=== PATIENT | male | born 1930 | race Hispanic/Latino ===

== ENCOUNTER 2017-10-22 17:46 | Inpatient (IN) | payer SELFPAY ==
[2017-10-22 18:08] LABS: #Eosinphils 0.2 thou/uL (0.0-0.7); #Lymphocytes 1.4 thou/uL (1.20-3.40); #Monocytes 1.5 thou/uL (0.11-0.59); #Neutrophils 9.6 thou/uL (1.40-6.50); %Eosinophils 1.2 % (0.0-10.0); %Monocytes 11.5 % (0.0-10.0); %Neutrophils 76.2 % (42.0-75.0); Hemoglobin 16.2 g/dL (14.0-18.0); Mean Corpuscular HGB CONC 33.1 g/dL (32.0-36.0); Mean Corpuscular Hemoglobin 33.5 pg (27.0-31.0); Mean Platelet Volume 7.5 fL (7.4-10.4); Platelet Count 193 thou/uL (130-400); RBC Distribution Width 11.6 % (11.5-14.5); Red Blood Cell (RBC) Count 4.83 mill/uL (4.70-6.10); White Blood Cell (WBC) Count 12.6 thou/uL (4.8-10.8)
[2017-10-22 18:29] LABS: ALT (SGPT) 7 U/L (8-55); AST (SGOT) 16 U/L (5-34); Alkaline Phosphatase 88 U/L (40-150); Anion Gap 15 mmol/L (10-20); BUN (Urea Nitrogen) 17 mg/dL (8.4-25.7); Bilirubin, Total 0.6 mg/dL (0.2-1.2); CK (CPK) 85 U/L (30-200); Calc. Creatinine Clearance 0 mL/min (70-130); Calcium 9.3 mg/dL (7.8-10.44); Carbon Dioxide 23 mmol/L (23-31); Chloride 103 mmol/L (98-107); Estimated GFR-MDRD 74; Globulin 3.9 g/dL (2.4-3.5); Glucose 90 mg/dL (83-110); Protein, Total 7.9 g/dL (5.8-8.1); Sodium 137 mmol/L (136-145)
[2017-10-22 18:33] LABS: CKMB 1.8 ng/mL (0-6.6); Troponin I 0.087 ng/mL (< 0.028)
[2017-10-22] MEDS ORDERED: Esmolol 100 MG/10 ML VIAL IVP SCH (19:00)
[2017-10-22] MEDS ORDERED: Esmolol 2,500 MG/NS 250 ML 250 ML IVPB SCH (19:00)
--- NOTE | 2017-10-22 19:08 | RAD ---
PORTABLE CHEST: 10/22/17 HISTORY: Cough. Lungs appear clear of confluent infiltrate. Heart is upper normal size. Mild aortic calcification not ed. No evidence of vascular congestion. There is interstitial prominence in the mid and lower lungs w hich may represent chronic change. Apical pleural thickening, more prominent on the left with some no dular pleural density in the left apex. I cannot exclude a left apical pulmonary nodule. This should be evaluated with elective followup CT. IMPRESSION: There are chronic parenchymal changes. Left apical pleural changes have a nodular appearance. Recomme nd followup elective chest CT. Code T Code LN POS: [facility]
[2017-10-22] MEDS ORDERED: Enoxaparin Sodium 80 MG/0.8 ML SYRINGE ONE (19:59)
[2017-10-22 22:04] LABS: Troponin I 0.089 ng/mL (< 0.028)
[2017-10-22 23:40] VITALS: BMI 20.5
[2017-10-23] MEDS ORDERED: Senokot 8.6 MG TAB PO PRN (04:39)
[2017-10-23] MEDS ORDERED: Acetaminophen 325 MG TAB PO PRN (04:39)
[2017-10-23] MEDS: Furosemide 40 MG/4 ML VIAL SLOW IVP SCH ×4 (05:28→23:17)
--- NOTE | 2017-10-23 05:42 | HP ---
REASON FOR ADMISSION: Paroxysmal atrial fibrillation, currently in sinus; acute CHF exacerbation, new onset; acute on chronic obstructive pulmonary disease exacerbation. HISTORY OF PRESENT ILLNESS: The patient gives history of having worsening of his cough and expectoration of greenish yellow phlegm. This has been getting worse from the last two days. He developed palpitations from yesterday night. On arrival, the patient had atrial fibrillation with RVR with rates going up to 140. He was placed on esmolol drip and is currently in sinus rhythm. He has no complaints of chest pain, but has severe orthopnea and is sitting up on the bed. No fever at home. PAST MEDICAL AND SURGICAL HISTORY: History of hypertension, COPD, GERD. No prior surgical history. CURRENT MEDICATIONS: Takes enalapril 10 mg daily. ALLERGIES: No known drug allergies. PERSONAL HISTORY: Smokes one pack a day and has been doing so for the last 30 years. Does not abuse alcohol or drugs. Walks by himself and does all his ADL. FAMILY HISTORY: Mother in her 80s. Father at the age of 68 years. He has had history of COPD. REVIEW OF SYSTEMS: The following complete review of systems was negative, unless otherwise mentioned in the HPI or below: Constitutional: Weight loss or gain, ability to conduct usual activities. Skin: Rash, itching. Eyes: Double vision, pain. ENT/Mouth: Nose bleeding, neck stiffness, pain, tenderness. Cardiovascular: Palpitations, dyspnea on exertion, orthopnea. Respiratory: Shortness of breath, wheezing, cough, hemoptysis, fever or night sweats. Gastrointestinal: Poor appetite, abdominal pain, heartburn, nausea, vomiting, constipation, or diarrhea. Genitourinary: Urgency, frequency, dysuria, nocturia. Musculoskeletal: Pain, swelling. Neurologic/Psychiatric: Anxiety, depression. Allergy/Immunologic: Skin rash, bleeding tendency. PHYSICAL EXAMINATION: GENERAL: The patient is an 87-year-old male who is currently in moderate respiratory distress with orthopnea. VITAL SIGNS: Blood pressure 150/96, pulse 110 per minute, respiratory rate 20 per minute, temperature 98 degrees Fahrenheit, saturating 100% on room air. NECK: Supple, no elevated JVD. HEENT: His extraocular muscles intact. Pupils reacting to light. Oral cavity : Mucous membranes are moist. No exudates or congestion. CARDIOVASCULAR SYSTEM: S1, S2 heard. Regular rhythm. RESPIRATORY SYSTEM: Air entry 1+ bilateral. There are rales plus in the intrascapular and infrascapular area. ABDOMEN: Soft, bowel sounds heard. No tenderness, rigidity or guarding. EXTREMITIES: No peripheral edema or calf tenderness. VASCULAR SYSTEM: Peripheral pulses 1+ bilateral. No ischemic ulcerations or gangrene. CENTRAL NERVOUS SYSTEM: No gross focal deficits seen. The patient is alert, awake, oriented well. PSYCHIATRIC SYSTEM: The patient's mood is euthymic. No hallucinations or delusions. LABORATORY DATA AND X-RAY FINDINGS: Troponin I 0.08. BNP is 1392, albumin is 4.0. Chest x-ray done shows scarring in left apical pleura, otherwise no acute infiltrate. BUN 10, creatinine 0.9. Electrolytes are stable. Liver enzymes are within normal limits. White count of 12, H and H 16 and 48, platelet count is 193, MCV is 101 with 76% neutrophils. EKG done showed atrial fibrillation with RVR at 140 beats per minute. There are signs of LVH. There are also ST-T wave changes seen, likely due to LVH strain pattern. CLINICAL IMPRESSION AND PLAN: The patient will be admitted to telemetry. The patient was in atrial fibrillation with rapid ventricular response, likely paroxysmal and is currently in sinus rhythm, after being placed on esmolol drip. He is currently in sinus and will switch him over to Cardizem-CD 120 mg twice daily. We will place him on Lasix 40 mg IV q.6 hourly for his severe orthopnea, total of 4 doses will be given and if needed, will be continued based on clinical response. He will be on DuoNebs, empiric Augmentin and steroids for chronic obstructive pulmonary disease exacerbation. The patient will be on aspirin for now. Echo with 2D Doppler to rule out thrombus. The patient is currently visiting family from [place]. He is 87 years old and unclear if he will be compliant with blood thinners if he is placed on. We will continue to closely monitor him on telemetry for now. SANDRA
[2017-10-23] MEDS ORDERED: hydrALAZINE 20 MG/ML VIAL SLOW IVP PRN (07:13)
[2017-10-23] MEDS ORDERED: cloNIDine 0.1 MG TAB PO PRN (07:13)
[2017-10-23] MEDS ORDERED: Milk Of Magnesia 30 ML UDCUP PO PRN (07:13)
[2017-10-23] MEDS ORDERED: Artificial Tears 18 DROP/0.9 ML EA EYE PRN (07:13)
[2017-10-23] MEDS ORDERED: Eucerin (Mineral Oil/Petrolatum,White) 30 gm Jar TOP PRN (07:13)
[2017-10-23] MEDS ORDERED: traMADol HCl 50 MG TAB PO PRN (07:13)
[2017-10-23] MEDS ORDERED: Loperamide HCl 2 MG CAP PO PRN (07:13)
[2017-10-23] MEDS ORDERED: Sodium Chloride 0.65% Nasal 44 ML BOT EA NARE PRN (07:13)
[2017-10-23] MEDS ORDERED: Diabetic Tussin 200 MG/10 ML UDCUP PO PRN (07:13)
[2017-10-23] MEDS ORDERED: Chloraseptic Spray 180 ml Bottle PO PRN (07:13)
[2017-10-23] MEDS ORDERED: Benzonatate 100 MG CAP PO PRN (07:13)
[2017-10-23] MEDS ORDERED: Ondansetron ODT 4 MG TAB PO PRN (07:13)
[2017-10-23] MEDS ORDERED: Ondansetron HCl/PF 4 MG/2 ML Vial IVP PRN (07:13)
[2017-10-23] MEDS ORDERED: Mag-Al 1200 mg/1200 mg/30 ML UDCUP PO PRN (07:13)
[2017-10-23] MEDS ORDERED: Temazepam 15 MG CAP PO PRN (07:13)
[2017-10-23] MEDS ORDERED: Loratadine 10 MG TAB PO PRN (07:13)
[2017-10-23] MEDS ORDERED: Lisinopril 2.5 MG TAB PO SCH (09:00)
[2017-10-23] MEDS ORDERED: Enoxaparin Sodium 40 MG/0.4 ML SYRINGE SC SCH (09:00)
[2017-10-23] MEDS ORDERED: Carvedilol 3.125 MG TAB PO SCH (09:00)
--- NOTE | 2017-10-23 09:17 | PDOC.PN ---
- Subjective Encounter Start Date: 10/23/17 Encounter Start Time: 08:00 -: old records requested/rev Patient seen and examined. No new complaints. No overnight events - Objective Resuscitation Status: Resuscitation Status FULL:Full Resuscitation MAR Reviewed: Yes Vital Signs & Weight: Vital Signs (12 hours) Temp Pulse Resp BP BP Pulse Ox 10/23/17 08:19 93 L 10/23/17 08:16 97 16 10/23/17 04:39 98.0 F 85 17 170/79 H 93 L 10/22/17 22:00 98.0 F 101 H 20 163/79 H 100 Weight Weight 123 lb 14.4 oz I&O: 10/22/17 10/23/17 10/24/17 06:59 06:59 06:59 Intake Total 0 Output Total 0 Balance 0 Result Diagrams: 10/22/17 17:58 10/22/17 17:58 EKG Reviewed by me: Yes (nsr) Phys Exam - Physical Examination Constitutional: NAD HEENT: PERRLA, moist MMs, sclera anicteric Neck: no JVD, supple Respiratory: no wheezing, no rhonchi few rales Cardiovascular: RRR, no significant murmur, no rub Gastrointestinal: soft, non-tender, no distention, positive bowel sounds Musculoskeletal: no edema, pulses present Neurological: non-focal, normal sensation Lymphatic: no nodes Psychiatric: normal affect, A&O x 3 Skin: no rash, normal turgor Dx/Plan (1) Atrial fibrillation with RVR Code(s): I48.91 - UNSPECIFIED ATRIAL FIBRILLATION Status: Acute (2) COPD exacerbation Code(s): J44.1 - CHRONIC OBSTRUCTIVE PULMONARY DISEASE W (ACUTE) EXACERBATION Status: Acute (3) Elevated brain natriuretic peptide (BNP) level Code(s): R79.89 - OTHER SPECIFIED ABNORMAL FINDINGS OF BLOOD CHEMISTRY Status : Acute (4) Elevated troponin Code(s): R74.8 - ABNORMAL LEVELS OF OTHER SERUM ENZYMES Status: Acute (5) Macrocytosis Code(s): D75.89 - OTHER SPECIFIED DISEASES OF BLOOD AND BLOOD-FORMING ORGANS Status: Acute (6) GERD (gastroesophageal reflux disease) Code(s): K21.9 - GASTRO-ESOPHAGEAL REFLUX DISEASE WITHOUT ESOPHAGITIS Status: Chronic (7) Hypertension Code(s): I10 - ESSENTIAL (PRIMARY) HYPERTENSION Status: Chronic - Plan cont current plan of care, plan discussed w/ family, continue antibiotics, respiratory therapy * afib converted to NSR * continue cardizem cd po * copd is getting better, continue solumedrol, add dulera, continue duoneb * control BP * continue lasix * echo pending * discussed with daughter * medication reviewed as below * symptomatic treatment. Review of Systems - Review of Systems Constitutional: negative: fever, chills, sweats, weakness, malaise, other ENT: negative: Ear Pain, Ear Discharge, Nose Pain, Nose Discharge, Nose Congestion, Mouth Pain, Mouth Swelling, Throat Pain, Throat Swelling, Other Respiratory: SOB with Excertion. negative: Cough, Dry, Shortness of Breath, Hemoptysis, Pleuritic Pain, Sputum, Wheezing Cardiovascular: orthopnea. negative: chest pain, palpitations, paroxysmal nocturnal dyspnea, edema, light headedness, other Gastrointestinal: negative: Nausea, Vomiting, Abdominal Pain, Diarrhea, Constipation, Melena, Hematochezia, Other Genitourinary: negative: Dysuria, Frequency, Incontinence, Hematuria, Retention , Other Musculoskeletal: negative: Neck Pain, Shoulder Pain, Arm Pain, Back Pain, Hand Pain, Leg Pain, Foot Pain, Other Skin: negative: Rash, Lesions, Joaquin, Bruising, Other - Medications/Allergies Allergies/Adverse Reactions: Allergies Allergy/AdvReac Type Severity Reaction Status Date / Time No Known Allergies Allergy Verified 10/22/17 23:27 Medications: Current Medications Acetaminophen (Tylenol) 650 mg PO Q4H PRN PRN Reason: Headache/Fever or Pain Al Hydroxide/Mg Hydroxide (Maalox) 15 ml PO Q4H PRN PRN Reason: Heartburn or Indigestion Albuterol/Ipratropium (Duoneb) 3 ml NEB [id number] Last Admin: 10/23/17 08:16 Dose: 3 ml Albuterol/Ipratropium (Duoneb) 3 ml NEB [id number] PRN PRN Reason: SOB &/or Wheezing Amoxicillin/Clavulanate Potassium (Augmentin) 875 mg PO BID [facility] Artificial Tears (Tears Naturale) 0 drop EA EYE PRN PRN PRN Reason: Dry Eyes Aspirin (Aspirin Chewable) 81 mg PO DAILY [facility] Benzonatate (Tessalon) 100 mg PO Q4H PRN PRN Reason: Cough Clonidine (Catapres) 0.1 mg PO Q4H PRN PRN Reason: Systolic BP > 180 Diltiazem HCl (Cardizem Cd) 120 mg PO BID [facility] Enoxaparin Sodium (Lovenox) 40 mg SC 0900 [facility] Famotidine (Pepcid) 20 mg PO DAILY [facility] Furosemide (Lasix) 40 mg SLOW IVP Q6HR [facility] Stop: 10/24/17 00:00 Last Admin: 10/23/17 05:28 Dose: 40 mg Guaifenesin (Robitussin Sf) 200 mg PO Q4H PRN PRN Reason: Cough Guaifenesin/Dextromethorphan (Robitussin Dm) 15 ml PO Q4H PRN PRN Reason: Cough Hydralazine HCl (Apresoline) 10 mg SLOW IVP Q4H PRN PRN Reason: Systolic BP > 180 Lisinopril (Zestril) 5 mg PO BID [facility] Loperamide HCl (Imodium) 2 mg PO PRN PRN PRN Reason: Diarrhea/Loose Stools Loratadine (Claritin) 10 mg PO DAILYPRN PRN PRN Reason: Sinus Symptoms Magnesium Hydroxide (Milk Of Magnesium) 30 ml PO DAILYPRN PRN PRN Reason: Constipation Methylprednisolone Sodium Succinate (Solu-Medrol) 40 mg IVP Q6HR [facility] Last Admin: 10/23/17 05:28 Dose: 40 mg Mineral Oil/White Petrolatum (Eucerin Cream) 0 gm TOP BIDPRN PRN PRN Reason: Dry Skin Mometasone Furoate/Formoterol Fumar (Dulera 200 Mcg/5 Mcg Inhaler) 1 puff INH BID-RT [facility] Ondansetron HCl (Zofran Odt) 4 mg PO Q6H PRN PRN Reason: Nausea/Vomiting Ondansetron HCl (Zofran) 4 mg IVP Q6H PRN PRN Reason: Nausea/Vomiting Phenol (Chloraseptic [place] 180 Ml Bot) 0 ml PO PRN PRN PRN Reason: Sore Throat Senna (Senokot) 2 tab PO HSPRN PRN PRN Reason: Constipation Sodium Chloride ([place] Nasal [place] 0.65%) 0 ml EA NARE QIDPRN PRN PRN Reason: Nasal Congestion Sodium Chloride (Flush - Normal Saline) 10 ml IVF Q12HR [facility] Sodium Chloride (Flush - Normal Saline) 10 ml IVF PRN PRN PRN Reason: Saline Flush Temazepam (Restoril) 15 mg PO HSPRN PRN PRN Reason: Insomnia Tramadol HCl (Ultram) 50 mg PO Q6H PRN PRN Reason: Moderate Pain (4-6)
[2017-10-23] MEDS: Famotidine 20 MG TAB PO SCH (09:43)
[2017-10-23] MEDS: Amoxicillin/Potassium Clav 875 MG TAB PO SCH ×2 (09:43→20:40)
[2017-10-23] MEDS: Lisinopril 5 MG TAB PO SCH ×2 (09:43→20:41)
[2017-10-23] MEDS: Guaifenesin DM 100-10/5 ML UDCUP PO PRN ×2 (09:44→17:46)
[2017-10-23] MEDS ORDERED: Esmolol 2,500 MG/NS 250 ML 250 ML IVPB SCH (12:00)
[2017-10-23] MEDS ORDERED: Flecainide 50 MG TAB PO SCH (12:15)
--- NOTE | 2017-10-23 13:41 | CON ---
DATE OF CONSULTATION: 10/23/2017 HISTORY OF PRESENT ILLNESS: The patient is an 87-year-old gentleman who presents with weakness and dyspnea. The patient has a previous history of atrial fibrillation. He states 3 years ago after being diagnosed with pneumonia he was found to be in atrial fibrillation. The patient lives primarily in [place]. He was visiting when he again for developed acute dyspnea. He denied having any fevers or chills. He denied having any chest discomfort. PAST MEDICAL HISTORY: 1. History of pneumonia. 2. Hypertension. 3. Prostate carcinoma. PAST SURGICAL HISTORY: Prostate surgery and lip surgery. SOCIAL HISTORY: He has a long history of tobacco abuse. ALLERGIES: None MEDICATIONS: Enalapril 10 daily, aspirin tablet daily. FAMILY HISTORY: Positive for history of cerebrovascular accident. No strong family history of coronary artery disease. PHYSICAL EXAMINATION: GENERAL: Elderly gentleman in no acute distress. VITAL SIGNS: Blood pressure 132/78. NECK: No jugular distention. LUNGS: Diminished breath sounds bilateral. HEART: Regular rate and rhythm, normal S1, S2. ABDOMEN: Nondistended. EXTREMITIES: Showed no edema. SKIN: Warm and dry. NEUROLOGIC: Nonfocal. LABORATORY RESULTS: Sodium 137, potassium 4.0, chloride 103, bicarb 23, BUN 17 , creatinine 0.97. BNP 1392, troponin 0.089. White blood cell count 12.6, hemoglobin 16.2, hematocrit 48.9 and platelets 193. EKG revealed atrial fibrillation with an ST-T wave abnormality suggestive of ischemia. IMPRESSION: 1. Rapid atrial fibrillation with a rapid ventricular response. 2. Hypertension. 3. Dyspnea. This gentleman presents with rapid atrial fibrillation. We will try to convert the patient with flecainide. We will check the patient's echocardiogram. We will follow this patient with you through his hospitalization. SANDRA
[2017-10-23] MEDS ORDERED: Amiodarone HCl 450 MG, Admixture Fee 1 EACH in Dextrose 5% in Water 250 ML IVPB SCH ×3 (16:15)
[2017-10-23] MEDS ORDERED: Amiodarone In Dextrose 200 ML IVPB SCH (16:15)
[2017-10-23] MEDS ORDERED: Amiodarone HCl 150 MG, Admixture Fee 1 EACH in Dextrose 5% in Water 100 ML IVPB SCH ×3 (16:15)
[2017-10-23 16:44] LABS: ALT (SGPT) 8 U/L (8-55); AST (SGOT) 15 U/L (5-34); Albumin 3.7 g/dL (3.4-4.8); Alkaline Phosphatase 80 U/L (40-150); Bilirubin, Direct 0.3 mg/dL (0.1-0.3); Bilirubin, Total 0.6 mg/dL (0.2-1.2); Magnesium 1.9 mg/dL (1.6-2.6); Potassium 3.7 mmol/L (3.5-5.1); Protein, Total 7.5 g/dL (5.8-8.1)
[2017-10-23] MEDS: Mometasone/Formoterol 120 PUFF INHALER INH SCH (19:20)
[2017-10-23] MEDS: Apixaban 5 MG TAB PO SCH (20:40)
[2017-10-23] MEDS ORDERED: Apixaban 2.5 MG TAB PO SCH (21:00)
[2017-10-23 21:58] LABS: Hemoglobin 15.3 g/dL (14.0-18.0); Platelet Count 209 thou/uL (130-400)
[2017-10-24 05:24] LABS: #Lymphocytes 0.7 thou/uL (1.20-3.40); #Monocytes 0.6 thou/uL (0.11-0.59); #Neutrophils 11.5 thou/uL (1.40-6.50); %Eosinophils 0.1 % (0.0-10.0); %Lymphocytes 5.3 % (21.0-51.0); %Monocytes 4.8 % (0.0-10.0); %Neutrophils 89.8 % (42.0-75.0); Hemoglobin 14.7 g/dL (14.0-18.0); Mean Corpuscular HGB CONC 33.1 g/dL (32.0-36.0); Mean Platelet Volume 8.3 fL (7.4-10.4); Platelet Count 202 thou/uL (130-400); RBC Distribution Width 11.6 % (11.5-14.5); Red Blood Cell (RBC) Count 4.33 mill/uL (4.70-6.10); White Blood Cell (WBC) Count 12.8 thou/uL (4.8-10.8)
[2017-10-24 05:45] LABS: Anion Gap 16 mmol/L (10-20); BUN (Urea Nitrogen) 44 mg/dL (8.4-25.7); Calc. Creatinine Clearance 21 mL/min (70-130); Calcium 9.5 mg/dL (7.8-10.44); Carbon Dioxide 23 mmol/L (23-31); Chloride 99 mmol/L (98-107); Estimated GFR-MDRD 30; Glucose 166 mg/dL (83-110); Potassium 3.5 mmol/L (3.5-5.1); Sodium 134 mmol/L (136-145)
[2017-10-24] MEDS: Mometasone/Formoterol 120 PUFF INHALER INH SCH ×2 (06:55→19:08)
[2017-10-24] MEDS ORDERED: Sodium Chloride 0.9% 1,000 ML IV SCH (07:45)
[2017-10-24] MEDS: Apixaban 5 MG TAB PO SCH ×2 (09:24→21:43)
[2017-10-24] MEDS: Cyanocobalamin (Vitamin B-12) 1,000 MCG TAB PO SCH (09:24)
[2017-10-24] MEDS: Famotidine 20 MG TAB PO SCH (09:24)
[2017-10-24] MEDS: Folic Acid 1 MG TAB PO SCH (09:24)
[2017-10-24] MEDS: Amiodarone 200 MG TAB PO SCH ×2 (09:24→21:44)
[2017-10-24 10:36] LABS: Bilirubin Negative (Negative); Blood, Urine Negative (Negative); Clarity CLEAR (Clear); Glucose, Urine (Dipstick) Negative (Negative); Leukocyte Negative (Negative); Nitrite Negative (Negative); Protein, Urine (Dipstick) Negative (Neg-Trace); Specific Gravity, Urine 1.021 (1.002-1.036)
[2017-10-24 10:37] LABS: Bacteria/HPF None Seen HPF (None Seen); Hyaline Casts/LPF 7-10 HYALINE CAST LPF (0-3 Hyaline); Pathc Cast-AUWi Flag 0.27 (0-2.49); RBC/HPF 0-3 HPF (0-3); Squamous Epithelial 0-3 HPF (0-3); WBC/HPF 0-3 HPF (0-3)
[2017-10-24 10:56] LABS: Creatinine, Urine 150.67 mg/dL (63-166); Protein, Urine Random Quant 14 mg/dL; Sodium, Urine Less than 20 mmol/L (Not Available)
--- NOTE | 2017-10-24 11:50 | PDOC.PN ---
- Subjective Encounter Start Date: 10/24/17 Encounter Start Time: 08:00 Patient seen and examined. No new complaints. No overnight events today pt has acute kidney failure - Objective Resuscitation Status: Resuscitation Status FULL:Full Resuscitation MAR Reviewed: Yes Vital Signs & Weight: Vital Signs (12 hours) Temp Pulse Pulse Pulse Resp BP BP 10/24/17 11:05 97.6 F 61 18 10/24/17 10:00 61 61 149/65 H 139/61 10/24/17 08:00 97.7 F 62 17 10/24/17 07:55 97.7 F 62 17 10/24/17 06:55 60 14 10/24/17 04:05 98.0 F 68 22 H 10/24/17 02:17 BP Pulse Ox Pulse Ox Pulse Ox 10/24/17 11:05 138/60 96 10/24/17 10:00 95 95 10/24/17 08:00 10/24/17 07:55 135/61 97 10/24/17 06:55 10/24/17 04:05 125/59 L 10/24/17 02:17 95 Weight Weight 129 lb 14.4 oz I&O: 10/23/17 10/24/17 10/25/17 06:59 06:59 06:59 Intake Total 0 1395 Output Total 0 3505 Balance 0 -2110 Result Diagrams: 10/24/17 04:50 10/24/17 04:50 Radiology Reviewed by me: Yes (echo report) EKG Reviewed by me: Yes (afib) Phys Exam - Physical Examination Constitutional: NAD HEENT: PERRLA, moist MMs, sclera anicteric Neck: no JVD, supple Respiratory: no wheezing, no rales, no rhonchi Cardiovascular: no significant murmur, irregular Gastrointestinal: soft, non-tender, no distention, positive bowel sounds Musculoskeletal: no edema, pulses present Neurological: non-focal, normal sensation, moves all 4 limbs Lymphatic: no nodes Psychiatric: normal affect, A&O x 3 Skin: no rash, normal turgor Dx/Plan (1) Acute kidney failure Status: Acute (2) Atrial fibrillation with RVR Code(s): I48.91 - UNSPECIFIED ATRIAL FIBRILLATION Status: Acute (3) COPD exacerbation Code(s): J44.1 - CHRONIC OBSTRUCTIVE PULMONARY DISEASE W (ACUTE) EXACERBATION Status: Acute (4) Elevated troponin Code(s): R74.8 - ABNORMAL LEVELS OF OTHER SERUM ENZYMES Status: Acute Comment: demand ischemia (5) Macrocytosis Code(s): D75.89 - OTHER SPECIFIED DISEASES OF BLOOD AND BLOOD-FORMING ORGANS Status: Acute (6) GERD (gastroesophageal reflux disease) Code(s): K21.9 - GASTRO-ESOPHAGEAL REFLUX DISEASE WITHOUT ESOPHAGITIS Status: Chronic (7) Hypertension Code(s): I10 - ESSENTIAL (PRIMARY) HYPERTENSION Status: Chronic (8) Acute on chronic systolic (congestive) heart failure Code(s): I50.23 - ACUTE ON CHRONIC SYSTOLIC (CONGESTIVE) HEART FAILURE Status : Resolved - Plan cont current plan of care, plan discussed w/ family * start IVF today * repeat labs tomorrow * reduce solumedrol * medication reviewed as below * symptomatic treatment * DC lisinopril * check UA, sodium, creatinine and protein in urine * discussed with daughter. Review of Systems - Review of Systems ENT: negative: Ear Pain, Ear Discharge, Nose Pain, Nose Discharge, Nose Congestion, Mouth Pain, Mouth Swelling, Throat Pain, Throat Swelling, Other Respiratory: negative: Cough, Dry, Shortness of Breath, Hemoptysis, SOB with Excertion, Pleuritic Pain, Sputum, Wheezing Cardiovascular: negative: chest pain, palpitations, orthopnea, paroxysmal nocturnal dyspnea, edema, light headedness, other Gastrointestinal: negative: Nausea, Vomiting, Abdominal Pain, Diarrhea, Constipation, Melena, Hematochezia, Other Genitourinary: negative: Dysuria, Frequency, Incontinence, Hematuria, Retention , Other Musculoskeletal: negative: Neck Pain, Shoulder Pain, Arm Pain, Back Pain, Hand Pain, Leg Pain, Foot Pain, Other Skin: negative: Rash, Lesions, Joaquin, Bruising, Other - Medications/Allergies Allergies/Adverse Reactions: Allergies Allergy/AdvReac Type Severity Reaction Status Date / Time No Known Allergies Allergy Verified 10/22/17 23:27 Medications: Current Medications Acetaminophen (Tylenol) 650 mg PO Q4H PRN PRN Reason: Headache/Fever or Pain Al Hydroxide/Mg Hydroxide (Maalox) 15 ml PO Q4H PRN PRN Reason: Heartburn or Indigestion Albuterol/Ipratropium (Duoneb) 3 ml NEB [id number] Last Admin: 10/24/17 06:55 Dose: 3 ml Albuterol/Ipratropium (Duoneb) 3 ml NEB [id number] PRN PRN Reason: SOB &/or Wheezing Amiodarone HCl (Cordarone) 200 mg PO BID [facility] Last Admin: 10/24/17 09:24 Dose: 200 mg Apixaban (Eliquis) 2.5 mg PO BID [facility] Last Admin: 10/24/17 09:24 Dose: 2.5 mg Artificial Tears (Tears Naturale) 0 drop EA EYE PRN PRN PRN Reason: Dry Eyes Aspirin (Aspirin Chewable) 81 mg PO DAILY [facility] Last Admin: 10/24/17 09:24 Dose: 81 mg Benzonatate (Tessalon) 100 mg PO Q4H PRN PRN Reason: Cough Clonidine (Catapres) 0.1 mg PO Q4H PRN PRN Reason: Systolic BP > 180 Cyanocobalamin (Vitamin B-12) 1,000 mcg PO DAILY [facility] Last Admin: 10/24/17 09:24 Dose: 1,000 mcg Famotidine (Pepcid) 20 mg PO DAILY [facility] Last Admin: 10/24/17 09:24 Dose: 20 mg Folic Acid (Folvite) 1 mg PO DAILY [facility] Last Admin: 10/24/17 09:24 Dose: 1 mg Guaifenesin (Robitussin Sf) 200 mg PO Q4H PRN PRN Reason: Cough Last Admin: 10/24/17 06:10 Dose: 200 mg Guaifenesin/Dextromethorphan (Robitussin Dm) 15 ml PO Q4H PRN PRN Reason: Cough Last Admin: 10/23/17 17:46 Dose: 15 ml Hydralazine HCl (Apresoline) 10 mg SLOW IVP Q4H PRN PRN Reason: Systolic BP > 180 Sodium Chloride (Normal Saline 0.9%) 1,000 mls @ 75 mls/hr IV .[id number] [facility] Stop: 10/24/17 21:04 Last Admin: 10/24/17 07:57 Dose: 1,000 mls Loperamide HCl (Imodium) 2 mg PO PRN PRN PRN Reason: Diarrhea/Loose Stools Loratadine (Claritin) 10 mg PO DAILYPRN PRN PRN Reason: Sinus Symptoms Magnesium Hydroxide (Milk Of Magnesium) 30 ml PO DAILYPRN PRN PRN Reason: Constipation Methylprednisolone Sodium Succinate (Solu-Medrol) 20 mg IVP Q8HR [facility] Mineral Oil/White Petrolatum (Eucerin Cream) 0 gm TOP BIDPRN PRN PRN Reason: Dry Skin Mometasone Furoate/Formoterol Fumar (Dulera 200 Mcg/5 Mcg Inhaler) 1 puff INH BID-RT [facility] Last Admin: 10/24/17 06:55 Dose: 1 puff Ondansetron HCl (Zofran Odt) 4 mg PO Q6H PRN PRN Reason: Nausea/Vomiting Ondansetron HCl (Zofran) 4 mg IVP Q6H PRN PRN Reason: Nausea/Vomiting Phenol (Chloraseptic [place] 180 Ml Bot) 0 ml PO PRN PRN PRN Reason: Sore Throat Senna (Senokot) 2 tab PO HSPRN PRN PRN Reason: Constipation Sodium Chloride ([place] Nasal [place] 0.65%) 0 ml EA NARE QIDPRN PRN PRN Reason: Nasal Congestion Sodium Chloride (Flush - Normal Saline) 10 ml IVF Q12HR [facility] Last Admin: 10/24/17 09:25 Dose: Not Given Sodium Chloride (Flush - Normal Saline) 10 ml IVF PRN PRN PRN Reason: Saline Flush Temazepam (Restoril) 15 mg PO HSPRN PRN PRN Reason: Insomnia Tramadol HCl (Ultram) 50 mg PO Q6H PRN PRN Reason: Moderate Pain (4-6)
[2017-10-24] MEDS ORDERED: Sterile Water 0 ML ONE (13:03)
[2017-10-24] MEDS ORDERED: Sterile Water 10 ML ONE (13:21)
[2017-10-24] MEDS: Guaifenesin DM 100-10/5 ML UDCUP PO PRN (13:29)
[2017-10-25 05:45] LABS: #Lymphocytes 1.1 thou/uL (1.20-3.40); #Monocytes 0.8 thou/uL (0.11-0.59); #Neutrophils 15.3 thou/uL (1.40-6.50); %Basophils 0.1 % (0.0-1.0); %Eosinophils 0.2 % (0.0-10.0); %Lymphocytes 6.3 % (21.0-51.0); %Monocytes 4.5 % (0.0-10.0); Hemoglobin 14.3 g/dL (14.0-18.0); Mean Corpuscular HGB CONC 32.2 g/dL (32.0-36.0); Mean Corpuscular Hemoglobin 32.4 pg (27.0-31.0); Mean Platelet Volume 7.7 fL (7.4-10.4); Platelet Count 227 thou/uL (130-400); RBC Distribution Width 11.7 % (11.5-14.5); White Blood Cell (WBC) Count 17.1 thou/uL (4.8-10.8)
[2017-10-25 05:55] LABS: Anion Gap 14 mmol/L (10-20); BUN (Urea Nitrogen) 43 mg/dL (8.4-25.7); Calc. Creatinine Clearance 30 mL/min (70-130); Calcium 9.2 mg/dL (7.8-10.44); Carbon Dioxide 26 mmol/L (23-31); Chloride 100 mmol/L (98-107); Estimated GFR-MDRD 43; Glucose 133 mg/dL (83-110); Potassium 3.7 mmol/L (3.5-5.1); Sodium 136 mmol/L (136-145)
[2017-10-25] MEDS: Mometasone/Formoterol 120 PUFF INHALER INH SCH ×2 (06:58→19:54)
[2017-10-25] MEDS: Amiodarone 200 MG TAB PO SCH ×2 (09:22→21:38)
[2017-10-25] MEDS: Apixaban 5 MG TAB PO SCH ×2 (09:23→21:37)
[2017-10-25] MEDS: Folic Acid 1 MG TAB PO SCH (09:23)
[2017-10-25] MEDS: Famotidine 20 MG TAB PO SCH (09:23)
[2017-10-25] MEDS: Cyanocobalamin (Vitamin B-12) 1,000 MCG TAB PO SCH (09:23)
[2017-10-25] MEDS: Guaifenesin DM 100-10/5 ML UDCUP PO PRN (09:31)
[2017-10-25] MEDS ORDERED: Sodium Chloride 0.9% 1,000 ML IV SCH (10:45)
--- NOTE | 2017-10-25 14:24 | EKG ---
Test Reason : Blood Pressure : / mmHG Vent. Rate : 140 BPM Atrial Rate : 150 BPM P-R Int : 000 ms QRS Dur : 094 ms QT Int : 324 ms P-R-T Axes : 000 053 141 degrees QTc Int : 494 ms Atrial fibrillation with rapid ventricular response Moderate voltage criteria for LVH, may be normal variant Marked ST abnormality, possible inferior subendocardial injury Abnormal ECG Confirmed by MINISTERIO Landaverde, BEHZAD ([id number]), online content editor DEBORAH ALSTON ([id number]) on 10/25/2017 2:23:16 PM Referred By: Confirmed By:BEHZAD MANDEL M.D.
--- NOTE | 2017-10-25 19:57 | PDOC.PN ---
- Subjective Encounter Start Date: 10/25/17 Encounter Start Time: 10:30 Patient seen and examined. No new complaints. No overnight events - Objective Resuscitation Status: Resuscitation Status FULL:Full Resuscitation MAR Reviewed: Yes Vital Signs & Weight: Vital Signs (12 hours) Temp Pulse Pulse Pulse Resp BP BP 10/25/17 19:54 10/25/17 19:53 10/25/17 15:32 97.7 F 75 18 10/25/17 13:22 80 24 H 10/25/17 11:03 97.7 F 66 17 10/25/17 10:02 70 66 177/76 H 157/67 H 10/25/17 08:00 97.4 F L 64 18 BP Pulse Ox Pulse Ox Pulse Ox 10/25/17 19:54 98 10/25/17 19:53 98 10/25/17 15:32 157/65 H 95 10/25/17 13:22 10/25/17 11:03 159/70 H 97 10/25/17 10:02 94 L 97 10/25/17 08:00 Weight Weight 131 lb 12.8 oz I&O: 10/24/17 10/25/17 10/26/17 06:59 06:59 06:59 Intake Total 1395 1740 1440 Output Total 3505 580 400 Balance -2110 1160 1040 Result Diagrams: 10/26/17 05:01 10/26/17 05:01 EKG Reviewed by me: Yes (Tele SR) Phys Exam - Physical Examination Constitutional: NAD Respiratory: no wheezing, no rhonchi Cardiovascular: RRR, no rub Gastrointestinal: soft, non-tender, positive bowel sounds Musculoskeletal: no edema Dx/Plan - Plan IMPRESSION: 1. Afib with RVR - in SR, on Amiodarone/Eliquis 2. BAO/CKD 2 - prob due to Cardiorenal syndrome 3. Acute on chronic systolic heart failure - not on ACEI/ARB/Aldactone due to BAO 4. COPD exacerbation - improving PLAN: * Gentle IV hydration for 500 ml * AM labs * Cardio following * Cont current meds as below * Change steroids to PO * Wean O2 Review of Systems - Review of Systems Respiratory: negative: Cough, Dry, Shortness of Breath, Hemoptysis, SOB with Excertion, Pleuritic Pain, Sputum, Wheezing Cardiovascular: negative: chest pain, palpitations, orthopnea, paroxysmal nocturnal dyspnea, edema, light headedness - Medications/Allergies Allergies/Adverse Reactions: Allergies Allergy/AdvReac Type Severity Reaction Status Date / Time No Known Allergies Allergy Verified 10/22/17 23:27 Medications: Current Medications Acetaminophen (Tylenol) 650 mg PO Q4H PRN PRN Reason: Headache/Fever or Pain Al Hydroxide/Mg Hydroxide (Maalox) 15 ml PO Q4H PRN PRN Reason: Heartburn or Indigestion Albuterol/Ipratropium (Duoneb) 3 ml NEB [id number] [facility] Last Admin: 10/25/17 19:53 Dose: 3 ml Albuterol/Ipratropium (Duoneb) 3 ml NEB [id number] PRN PRN Reason: SOB &/or Wheezing Amiodarone HCl (Cordarone) 200 mg PO BID [facility] Last Admin: 10/25/17 09:22 Dose: 200 mg Apixaban (Eliquis) 2.5 mg PO BID [facility] Last Admin: 10/25/17 09:23 Dose: 2.5 mg Artificial Tears (Tears Naturale) 0 drop EA EYE PRN PRN PRN Reason: Dry Eyes Aspirin (Aspirin Chewable) 81 mg PO DAILY [facility] Last Admin: 10/25/17 09:22 Dose: 81 mg Benzonatate (Tessalon) 100 mg PO Q4H PRN PRN Reason: Cough Clonidine (Catapres) 0.1 mg PO Q4H PRN PRN Reason: Systolic BP > 180 Cyanocobalamin (Vitamin B-12) 1,000 mcg PO DAILY [facility] Last Admin: 10/25/17 09:23 Dose: 1,000 mcg Famotidine (Pepcid) 20 mg PO DAILY [facility] Last Admin: 10/25/17 09:23 Dose: 20 mg Folic Acid (Folvite) 1 mg PO DAILY [facility] Last Admin: 10/25/17 09:23 Dose: 1 mg Guaifenesin (Robitussin Sf) 200 mg PO Q4H PRN PRN Reason: Cough Last Admin: 10/24/17 06:10 Dose: 200 mg Guaifenesin/Dextromethorphan (Robitussin Dm) 15 ml PO Q4H PRN PRN Reason: Cough Last Admin: 10/25/17 09:31 Dose: 15 ml Hydralazine HCl (Apresoline) 10 mg SLOW IVP Q4H PRN PRN Reason: Systolic BP > 180 Sodium Chloride (Normal Saline 0.9%) 1,000 mls @ 50 mls/hr IV .Q20H [facility] Stop: 10/25/17 20:46 Last Admin: 10/25/17 10:57 Dose: 1,000 mls Loperamide HCl (Imodium) 2 mg PO PRN PRN PRN Reason: Diarrhea/Loose Stools Loratadine (Claritin) 10 mg PO DAILYPRN PRN PRN Reason: Sinus Symptoms Magnesium Hydroxide (Milk Of Magnesium) 30 ml PO DAILYPRN PRN PRN Reason: Constipation Methylprednisolone Sodium Succinate (Solu-Medrol) 20 mg IVP Q8HR [facility] Last Admin: 10/25/17 14:41 Dose: 20 mg Mineral Oil/White Petrolatum (Eucerin Cream) 0 gm TOP BIDPRN PRN PRN Reason: Dry Skin Mometasone Furoate/Formoterol Fumar (Dulera 200 Mcg/5 Mcg Inhaler) 1 puff INH BID-RT [facility] Last Admin: 10/25/17 19:54 Dose: 1 puff Ondansetron HCl (Zofran Odt) 4 mg PO Q6H PRN PRN Reason: Nausea/Vomiting Ondansetron HCl (Zofran) 4 mg IVP Q6H PRN PRN Reason: Nausea/Vomiting Phenol (Chloraseptic Linwood 180 Ml Bot) 0 ml PO PRN PRN PRN Reason: Sore Throat Senna (Senokot) 2 tab PO HSPRN PRN PRN Reason: Constipation Sodium Chloride (Prentiss Nasal Linwood 0.65%) 0 ml EA NARE QIDPRN PRN PRN Reason: Nasal Congestion Sodium Chloride (Flush - Normal Saline) 10 ml IVF Q12HR [facility] Last Admin: 10/25/17 09:23 Dose: 10 ml Sodium Chloride (Flush - Normal Saline) 10 ml IVF PRN PRN PRN Reason: Saline Flush Temazepam (Restoril) 15 mg PO HSPRN PRN PRN Reason: Insomnia Tramadol HCl (Ultram) 50 mg PO Q6H PRN PRN Reason: Moderate Pain (4-6)
[2017-10-25 21:44] LABS: Hemoglobin 13.5 g/dL (14.0-18.0); Platelet Count 206 thou/uL (130-400)
[2017-10-26 05:16] LABS: #Monocytes 0.6 thou/uL (0.11-0.59); #Neutrophils 11.7 thou/uL (1.40-6.50); %Basophils 0.1 % (0.0-1.0); %Lymphocytes 7.4 % (21.0-51.0); %Monocytes 4.6 % (0.0-10.0); %Neutrophils 87.9 % (42.0-75.0); Hemoglobin 13.6 g/dL (14.0-18.0); Mean Corpuscular HGB CONC 33.1 g/dL (32.0-36.0); Mean Corpuscular Hemoglobin 33.4 pg (27.0-31.0); Mean Platelet Volume 7.4 fL (7.4-10.4); Platelet Count 213 thou/uL (130-400); RBC Distribution Width 11.5 % (11.5-14.5); Red Blood Cell (RBC) Count 4.06 mill/uL (4.70-6.10); White Blood Cell (WBC) Count 13.3 thou/uL (4.8-10.8)
[2017-10-26 05:42] LABS: ALT (SGPT) 16 U/L (8-55); AST (SGOT) 16 U/L (5-34); Albumin 3.3 g/dL (3.4-4.8); Alkaline Phosphatase 65 U/L (40-150); Anion Gap 11 mmol/L (10-20); BUN (Urea Nitrogen) 35 mg/dL (8.4-25.7); Bilirubin, Total 0.3 mg/dL (0.2-1.2); Calc. Creatinine Clearance 44 mL/min (70-130); Calcium 8.5 mg/dL (7.8-10.44); Carbon Dioxide 26 mmol/L (23-31); Chloride 103 mmol/L (98-107); Estimated GFR-MDRD 68; Globulin 2.8 g/dL (2.4-3.5); Glucose 118 mg/dL (83-110); Magnesium 2.3 mg/dL (1.6-2.6); Potassium 4.3 mmol/L (3.5-5.1); Protein, Total 6.1 g/dL (5.8-8.1); Sodium 136 mmol/L (136-145)
[2017-10-26] MEDS: Mometasone/Formoterol 120 PUFF INHALER INH SCH (06:35)
[2017-10-26] MEDS ORDERED: predniSONE 20 MG TAB PO SCH (08:00)
[2017-10-26] MEDS: Amiodarone 200 MG TAB PO SCH (08:50)
[2017-10-26] MEDS: Apixaban 5 MG TAB PO SCH (08:50)
[2017-10-26] MEDS: Cyanocobalamin (Vitamin B-12) 1,000 MCG TAB PO SCH (08:51)
[2017-10-26] MEDS: Famotidine 20 MG TAB PO SCH (08:51)
[2017-10-26] MEDS: Folic Acid 1 MG TAB PO SCH (08:51)
[2017-10-26] MEDS: Guaifenesin DM 100-10/5 ML UDCUP PO PRN ×2 (08:52→13:02)
[2017-10-26] MEDS ORDERED: Carvedilol 3.125 MG TAB PO SCH ×2 (10:45→17:00)
[2017-10-26 11:50] VITALS: TEMP 97.5
[2017-10-26 12:29] VITALS: BP 151/67
--- NOTE | 2017-10-27 09:36 | DIS ---
DATE OF DISCHARGE: 10/26/2017 DISCHARGE DISPOSITION: Home. FOLLOWUP: 1. Follow up with primary care physician at [facility] in 1 week. 2. Follow up with Cardiology, Dr. Zurdo Pruett, in 3-4 weeks. Outpatient cardiac rehab is recommended. The patient was extensively counseled to be compliant with fluid and salt restriction. ALLERGIES: No known drug allergies. The patient was seen and examined on the day of discharge, denies any new complaints, no chest pain, shortness of breath, or palpitations. DISCHARGE MEDICATIONS: 1. Aspirin 81 mg daily. 2. Eliquis 2.5 mg b.i.d. 3. Amiodarone 200 mg twice a day for 1 month and then daily. 4. Carvedilol 3.125 mg b.i.d. 5. Omnicef 300 mg b.i.d. for the next 5 days. 6. Enalapril 10 mg daily. 7. Mucinex twice a day for 1 week. 8. Prednisone taper. 9. Vitamin B12 daily. BRIEF HOSPITAL COURSE: Patient is an 87-year-old male, who was visiting from [place], presented to [facility] with shortness of breath. Please refer to the history and physical dated 10/22/2017 for mark shipley details. The patient was admitted to the hospital with a diagnosis of atrial fibrillation wit h rapid ventricular response as well as congestive heart failure exacerbation. Patient was seen by [facility]diology. He was started on amiodarone along with Eliquis. The patient is currently in sinus rhyth m. On admission, the patient was started on diuretics after which he developed acute kidney injury. Diu retics were discontinued. His creatinine is normalized at 1.04 on the day of discharge. His maximum creatinine was 2.14. SINDY inhibitor will be restarted tomorrow. A repeat basic metabolic panel next week is recommended. Primary care physician advised to follow. The patient has been cleared by [facility] diology for discharge. His echocardiogram showed left ventricular ejection fraction of 35%-40%. [facility] was recommended. However, due to financial reasons, the family declined. FINAL DIAGNOSES: 1. Atrial fibrillation with rapid ventricular response, currently in sinus rhythm. 2. Acute kidney injury on chronic kidney disease stage 2, probably secondary to cardiorenal syndrome versus diuretics, resolved. 3. Acute on chronic systolic heart failure, ejection fraction 35%-40%. 4. Chronic obstructive pulmonary disease exacerbation. 5. Hypertension. 6. Tobacco dependence. 7. Mild hyponatremia. 8. Mild protein-calorie malnutrition. 9. Elevated troponins, probably secondary to demand ischemia. 10. One of two blood culture positive for coagulase-negative staphylococcus, probably contamination. Plan of care was discussed with the patient and the family in detail. They stated understanding.
== END 2017-10-26 13:21 | disposition home or self-care (01) | DRG 291 ==
LOC: ERS 17:46 → 2NO 20:01 → ERS 21:53
PROVIDERS: ADMIT Emergency Medicine; ATTEND Emergency Medicine
DX: I13.0 Hypertensive heart and chronic kidney disease with heart failure and stage 1 through stage 4 chronic kidney disease, or unspecified chronic kidney disease (principal); I50.23 Acute on chronic systolic (congestive) heart failure; N17.9 Acute kidney failure, unspecified; I48.0 Paroxysmal atrial fibrillation; E87.1 Hypo-osmolality and hyponatremia; E44.1 Mild protein-calorie malnutrition; I24.8 Other forms of acute ischemic heart disease; J44.1 Chronic obstructive pulmonary disease with (acute) exacerbation; Z79.01 Long term (current) use of anticoagulants; N18.2 Chronic kidney disease, stage 2 (mild); K21.9 Gastro-esophageal reflux disease without esophagitis; F17.210 Nicotine dependence, cigarettes, uncomplicated; Z68.21 Body mass index [BMI] 21.0-21.9, adult; Z85.46 Personal history of malignant neoplasm of prostate
CPT/HCPCS: 36415; 71045; 80048; 80053; 80076; 81001; 82550; 82553; 82565; 82570; 83735; 83880; 84132; 84156; 84300; 84443; 84484; 84550; 85014; 85018; 85025; 85049; 87040; 87070; 87149; 87205; 93005; 93306; 93798; 94640; 94760; 96365; 96366; 96368; 96372; 96376; 99406; A4216; J0282; J1650; J1940; J1956; J2920; J7070; J7506; J7620

== ENCOUNTER 2017-11-03 15:19 | Inpatient (IN) | payer MEDICAID, SELFPAY ==
--- NOTE | 2017-11-03 16:48 | RAD ---
CHEST 1 VIEW: Date: 11/03/17 HISTORY: Chest pain. COMPARISON: Chest 1 view dated 10/22/17. FINDINGS: Lungs are mildly hyperinflated. Nodular densities project over the left lung apex, similar. No new focal air space consolidation, pneumothorax, or effusion. No acute osseous abnormality. IMPRESSION: No significant interval change. In a previous examination, CT of the chest was recommended. This john mmendation still stands. POS: ARTEM
[2017-11-03 17:14] LABS: #Basophils 0.1 thou/uL (0.0-0.2); #Eosinphils 0.2 thou/uL (0.0-0.7); #Lymphocytes 2.4 thou/uL (1.20-3.40); #Monocytes 1.6 thou/uL (0.11-0.59); #Neutrophils 8.5 thou/uL (1.40-6.50); %Basophils 0.5 % (0.0-1.0); %Eosinophils 1.6 % (0.0-10.0); %Monocytes 12.3 % (0.0-10.0); %Neutrophils 66.7 % (42.0-75.0); Hemoglobin 14.5 g/dL (14.0-18.0); Mean Corpuscular HGB CONC 33.7 g/dL (32.0-36.0); Mean Corpuscular Hemoglobin 34.1 pg (27.0-31.0); Mean Platelet Volume 7.3 fL (7.4-10.4); Platelet Count 276 thou/uL (130-400); RBC Distribution Width 11.7 % (11.5-14.5); Red Blood Cell (RBC) Count 4.25 mill/uL (4.70-6.10); White Blood Cell (WBC) Count 12.8 thou/uL (4.8-10.8)
[2017-11-03 17:20] LABS: ALT (SGPT) 18 U/L (8-55); AST (SGOT) 16 U/L (5-34); Albumin 3.3 g/dL (3.4-4.8); Alkaline Phosphatase 65 U/L (40-150); Anion Gap 8 mmol/L (10-20); BUN (Urea Nitrogen) 24 mg/dL (8.4-25.7); Bilirubin, Total 0.3 mg/dL (0.2-1.2); Calc. Creatinine Clearance 0 mL/min (70-130); Calcium 8.5 mg/dL (7.8-10.44); Carbon Dioxide 31 mmol/L (23-31); Chloride 99 mmol/L (98-107); Estimated GFR-MDRD 52; Globulin 2.7 g/dL (2.4-3.5); Glucose 94 mg/dL (83-110); Potassium 4.5 mmol/L (3.5-5.1); Sodium 133 mmol/L (136-145)
[2017-11-03 17:33] LABS: CKMB 1.6 ng/mL (0-6.6); Troponin I 0.048 ng/mL (< 0.028)
[2017-11-03 19:51] LABS: Troponin I 0.054 ng/mL (< 0.028)
[2017-11-03 22:23] LABS: Troponin I 0.043 ng/mL (< 0.028)
[2017-11-03 23:21] VITALS: BMI 20.9
[2017-11-04] MEDS ORDERED: HYDROcodone/Acetaminophen 5/325 mg Tablet PO PRN (00:13)
[2017-11-04] MEDS ORDERED: Acetaminophen 325 MG TAB PO PRN (00:13)
[2017-11-04] MEDS ORDERED: Ondansetron HCl/PF 4 MG/2 ML Vial IVP PRN (00:13)
[2017-11-04 01:01] LABS: Troponin I 0.051 ng/mL (< 0.028)
--- NOTE | 2017-11-04 01:24 | HP ---
DATE OF ADMISSION: 11/03/2017 CHIEF COMPLAINT: Chest pain. HISTORY OF PRESENT ILLNESS: This is an 87-year-old male with a known history of recurrent c hest pains was recently admitted to the hospital a week ago and was discharged a week ago. Patient h as a known history of COPD and history of GERD, which according to him is well controlled. Patient h as history of congestive heart failure, which he was admitted last time. He was discharged home on E liquis, as he was diagnosed with atrial fibrillation with rapid ventricular rate. Patient also had a n echo, which did not show any evidence of clot at that time. Patient was discharged and was suppose d to be followed up with medical billing supervisor for further ischemic workup as outpatient, but patient serjio almendarez a sudden onset of chest pain this afternoon 2 times at home and also symptoms of orthopnea, so pamela cuevas was immediately brought to the ER for further evaluation. When patient presented to the ER, he h ad a normal EKG, but had elevated troponin of 0.48, which progressively got increased to 0.054. Pamela ent had elevated BNP of 590, but this was much less than the previous BNP a week ago. Patient most genny ivey has NSTEMI and was admitted for further evaluation. Patient has poor communication and the windy ter, who does speak some Turkish and was able to give most of the history. Patient otherwise is st able, but is acutely orthopneic and is able to only sit up in the bed and unable to lie down on his b ack. PAST MEDICAL HISTORY: 1. Hypertension. 2. Chronic obstructive pulmonary disease. 3. Atrial fibrillation on anticoagulation. 4. Gastroesophageal reflux disease. 5. Congestive heart failure, systolic dysfunction. PAST SURGICAL HISTORY: None. SOCIAL HISTORY: Patient smokes 1 pack a day and has been doing it for the last 30 years. No history of alcohol, no history of illicit drug use. FAMILY HISTORY: Mother at the age of 80. Father at age of 68. No other premature deaths in e family. REVIEW OF SYSTEMS: Unable to obtain review of systems, but most from the patient directly, but I was able to talk to daughter and review of systems have been reviewed thoroughly. All 12 systems are re viewed. The following complete review of systems was negative, unless otherwise mentioned in the HPI or below: Constitutional: Weight loss or gain, sense of well-being, ability to conduct usual activ ities, exercise tolerance. Skin/Breast: Rash, itching, changes in hair growth or loss, nail changes , breast lumps, tenderness, swelling, nipple discharge. Eyes: Vision, double vision, tearing, blind spots, pain. ENT/Mouth: Headaches (location, time of onset, duration, precipitating factors), vert igo, lightheadedness, injury. Vision, double vision, tearing, blind spots, pain, nose bleeding, colds , obstruction, discharge, dental difficulties, gingival bleeding, dentures, neck stiffness, pain, ten derness, masses in thyroid or other areas. Cardiovascular: Precordial pain, substernal distress, pa lpitations, syncope, dyspnea on exertion, orthopnea, nocturnal paroxysmal dyspnea, edema, cyanosis, h ypertension, heart murmurs, varicosities, phlebitis, claudication. Respiratory: Pain, shortness of breath, wheezing, stridor, cough, hemoptysis, fever or night sweats. Gastrointestinal: Poor appetit e, dysphagia, indigestion, abdominal pain, heartburn, eructation, nausea, vomiting, hematemesis, jim dice, constipation, or diarrhea, abnormal stools (jonnathan-colored, tarry, bloody, greasy, foul smelling) , flatulence, hemorrhoids, recent changes in bowel habits. Genitourinary: Urgency, frequency, dysur ia, nocturia, hematuria, polyuria, oliguria, unusual (or change in) color of urine, stones, hesitancy , change in size of stream, dribbling, acute retention or incontinence, libido, potency. Musculoskel etal: Pain, swelling, redness or heat of muscles or joints, limitation, of motion, muscular weakness , atrophy, cramps. Neurologic/Psychiatric: Convulsions, paralysis, tremor, incoordination, paresthe ally, difficulties with memory of speech, sensory or motor disturbances, or muscular coordination (at axia, tremor), emotional problems, anxiety, depression, previous psychiatric care, unusual perception s, hallucinations. Allergy/Immunologic: Skin rash, anemia, bleeding tendency, polydipsia, polyuria, intolerance to heat or cold. ALLERGIES: No known drug allergies. HOME MEDICATIONS: 1. Guaifenesin 600 mg p.o. b.i.d. 2. Amiodarone 200 mg p.o. b.i.d. 3. Coreg 3.125 mg p.o. b.i.d. 4. Eliquis 2.5 mg p.o. b.i.d. 5. Aspirin 81 mg p.o. daily. 6. Enalapril 10 mg p.o. daily. PHYSICAL EXAMINATION: VITAL SIGNS: Blood pressures are 175/77, heart rate is 47, respirations 20, saturation is 98% to 99% . GENERAL: The patient is moderately built and moderately nourished, does not appear to be in any acut e distress at this time. He is alert and oriented x3. HEENT: Atraumatic, normocephalic. PERRLA. Extraocular movements were intact. CARDIOVASCULAR: S1, S2 normal, bradycardia. No murmurs, rubs, or gallops. LUNGS: Bilateral air entry was equal. Mild crackles were noted in the lower bases. ABDOMEN: Soft, nontender. No guarding, no rebound tenderness. Bowel sounds normal. MUSCULOSKELETAL: No calf tenderness. No pedal edema. No joint tenderness, no joint swelling. SKIN: No cyanosis, no erythema, no rash, no pallor. NEUROLOGIC: Cranial nerve examination II-XII intact. No focal deficits were noted. PSYCHIATRIC: No signs of suicidal ideation. No signs of ashish. NECK: No thyromegaly, no JVD. LABORATORY DATA: Sodium is 133, potassium 4.5, chloride is 99, BUN is 24, creatinine 1.3, troponin 0 .048, next troponin 0.054. BNP is 590. WBC 12.8, hemoglobin is 14.5, hematocrit 43.0, platelets are 276. ASSESSMENT: 1. Non-ST segment elevation myocardial infarction. 2. Acute bradycardia. 3. Right lung apex nodules. 4. Acute orthopnea. 5. Congestive heart failure. 6. Atrial fibrillation on anticoagulation. 7. Acute hyponatremia. 8. Acute kidney injury. PLAN: 1. Plan is to closely monitor this patient. We will do serial troponins and we will continue the pa tient on Eliquis at this time and the statin. 2. Patient has bradycardia with lowest being 47. At this time, we will hold off on the beta bailey s. We will continue on amiodarone at this time, which was started by the Cardiology. We will plan t o consult Cardiology in the morning. Patient had recent 2D echo a week ago with a low EF of 35%-40%. 3. Patient has orthopnea, most likely it could be from the left heart failure or the patient had chelsea dence of left apex lung nodules, which need further evaluation with CT of the chest. We will do a CT chest with contrast to look for any evidence of malignancies, as patient has been a chronic smoker. 4. Patient has history of COPD. No evidence of an exacerbation was noted. 5. Patient has elevated troponins. Plan per above. We will continue with Eliquis and we will hold the beta blockers, because of the bradycardia. 6. DVT prophylaxis, patient is on Eliquis. I spent 70 minutes with this patient.
[2017-11-04 04:57] LABS: #Basophils 0.1 thou/uL (0.0-0.2); #Eosinphils 0.2 thou/uL (0.0-0.7); #Lymphocytes 2.8 thou/uL (1.20-3.40); #Monocytes 1.6 thou/uL (0.11-0.59); %Basophils 0.4 % (0.0-1.0); %Eosinophils 1.8 % (0.0-10.0); %Monocytes 12.8 % (0.0-10.0); %Neutrophils 63.1 % (42.0-75.0); Hemoglobin 14.6 g/dL (14.0-18.0); Mean Corpuscular HGB CONC 33.5 g/dL (32.0-36.0); Mean Corpuscular Hemoglobin 34.2 pg (27.0-31.0); Mean Platelet Volume 7.5 fL (7.4-10.4); Platelet Count 284 thou/uL (130-400); RBC Distribution Width 11.8 % (11.5-14.5); Red Blood Cell (RBC) Count 4.26 mill/uL (4.70-6.10); White Blood Cell (WBC) Count 12.6 thou/uL (4.8-10.8)
[2017-11-04 05:14] LABS: Anion Gap 12 mmol/L (10-20); BUN (Urea Nitrogen) 22 mg/dL (8.4-25.7); Calc. Creatinine Clearance 38 mL/min (70-130); Calcium 8.6 mg/dL (7.8-10.44); Carbon Dioxide 29 mmol/L (23-31); Cardiac Risk 3.6 (Less than 4.5); Chloride 100 mmol/L (98-107); Cholesterol 154 mg/dl (< 200 Desired); Estimated GFR-MDRD 61; Glucose 78 mg/dL (83-110); HDL Cholesterol 43 mg/dL (>60 Neg Risk); LDL Cholesterol, Calculated 95 mg/dL; Potassium 4.5 mmol/L (3.5-5.1); Sodium 136 mmol/L (136-145); Triglycerides 81 mg/dL (Less than 150)
[2017-11-04] MEDS ORDERED: Amiodarone 200 MG TAB PO SCH (09:00)
[2017-11-04] MEDS ORDERED: Apixaban 2.5 MG TAB PO SCH (09:00)
[2017-11-04] MEDS ORDERED: FLU VACC TS2017-18 (>65YR) 0.5 ML SYRINGE IM ONE (09:00)
[2017-11-04] MEDS: Docusate 100 MG CAP PO SCH ×2 (09:34→20:34)
[2017-11-04] MEDS: Famotidine/PF 20 mg/2ml Vial SLOW IVP SCH (09:34)
--- NOTE | 2017-11-04 11:06 | PDOC.PN ---
- Subjective Encounter Start Date: 11/04/17 Encounter Start Time: 10:00 Subjective: sob is getting better -: cough+, no chest pain or palp now - Objective MAR Reviewed: Yes Vital Signs & Weight: Vital Signs (12 hours) Temp Pulse Pulse Pulse Resp BP BP 11/04/17 08:02 49 L 53 L 174/74 H 180/78 H 11/04/17 08:00 97.6 F 49 L 18 11/04/17 07:51 97.6 F 49 L 18 11/04/17 06:39 97.7 F 48 L 20 11/04/17 04:25 98.5 F 57 L 20 BP BP Pulse Ox Pulse Ox Pulse Ox 11/04/17 08:02 98 96 11/04/17 08:00 11/04/17 07:51 160/73 H 93 L 11/04/17 06:39 168/72 H 94 L 11/04/17 04:25 181/76 H 92 L Result Diagrams: 11/04/17 00:26 11/04/17 00:28 Phys Exam - Physical Examination HEENT: PERRLA, moist MMs Neck: no JVD, supple Respiratory: no wheezing rales+ Cardiovascular: RRR, no significant murmur Gastrointestinal: soft, no distention, positive bowel sounds Musculoskeletal: no edema, pulses present Neurological: non-focal, moves all 4 limbs Psychiatric: normal affect, A&O x 3 Dx/Plan (1) Acute on chronic systolic (congestive) heart failure Code(s): I50.23 - ACUTE ON CHRONIC SYSTOLIC (CONGESTIVE) HEART FAILURE Status : Acute Comment: ef of 35% (2) COPD (chronic obstructive pulmonary disease) Status: Chronic Qualifiers: COPD type: chronic bronchitis Chronic bronchitis type: unspecified Qualified Code(s): J42 - Unspecified chronic bronchitis (3) Afib Code(s): I48.91 - UNSPECIFIED ATRIAL FIBRILLATION Status: Chronic Qualifiers: Atrial fibrillation type: paroxysmal Qualified Code(s): I48.0 - Paroxysmal atrial fibrillation (4) Demand ischemia of myocardium Code(s): I24.8 - OTHER FORMS OF ACUTE ISCHEMIC HEART DISEASE Status: Acute (5) GERD (gastroesophageal reflux disease) Code(s): K21.9 - GASTRO-ESOPHAGEAL REFLUX DISEASE WITHOUT ESOPHAGITIS Status: Chronic Qualifiers: Esophagitis presence: esophagitis presence not specified Qualified Code(s) : K21.9 - Gastro-esophageal reflux disease without esophagitis (6) Hypertension Code(s): I10 - ESSENTIAL (PRIMARY) HYPERTENSION Status: Chronic Qualifiers: Hypertension type: essential hypertension Qualified Code(s): I10 - Essential (primary) hypertension - Plan gentle diuresis, has orthopnea -: ekg shows lvh strain with ST-T changes -: ?stress test in am/cath due to low ef, needs diuresis so he can lay flat -: duonebs, reduce amiodarone to once daily (HR down to 40's) -: on eliquis, asp and enalapril. Cardio consult * . Review of Systems - Medications/Allergies Allergies/Adverse Reactions: Allergies Allergy/AdvReac Type Severity Reaction Status Date / Time No Known Allergies Allergy Verified 11/03/17 20:49 Medications: Current Medications Acetaminophen (Tylenol) 650 mg PO Q4H PRN PRN Reason: Headache/Fever or Pain Hydrocodone Bitart/Acetaminophen (Ceiba 5/325) 1 tab PO Q4H PRN PRN Reason: Moderate Pain (4-6) Albuterol/Ipratropium (Duoneb) 3 ml NEB [id number] [facility] Amiodarone HCl (Cordarone) 200 mg PO DAILY [facility] Apixaban (Eliquis) 2.5 mg PO BID [facility] Last Admin: 11/04/17 10:36 Dose: 2.5 mg Aspirin (Aspirin Chewable) 81 mg PO DAILY [facility] Last Admin: 11/04/17 09:34 Dose: 81 mg Docusate Sodium (Colace) 100 mg PO BID [facility] Last Admin: 11/04/17 09:34 Dose: 100 mg Enalapril Maleate (Vasotec) 10 mg PO DAILY [facility] Last Admin: 11/04/17 09:34 Dose: 10 mg Famotidine (Pepcid) 20 mg SLOW IVP DAILY [facility] Last Admin: 11/04/17 09:34 Dose: 20 mg Furosemide (Lasix) 20 mg SLOW IVP 0600,1400 [facility] Furosemide (Lasix) 40 mg SLOW IVP ONE [facility] Guaifenesin (Mucinex) 600 mg PO Q12HR [facility] Ondansetron HCl (Zofran) 4 mg IVP Q6H PRN PRN Reason: Nausea/Vomiting
[2017-11-04] MEDS ORDERED: Furosemide 40 MG/4 ML VIAL SLOW IVP SCH (11:15)
--- NOTE | 2017-11-04 12:40 | CT ---
CT CHEST WITH IV CONTRAST: HISTORY: Abnormal x-ray from previous day, left apex nodular densities. FINDINGS: No evidence of mediastinal, hilar, or axillary mass or lymphadenopathy is seen. There are vascular c alcifications without evidence of aneurysm or dissection of the thoracic aorta. The pulmonary arteri es are well opacified without filling defects to suggest pulmonary embolism. No pleural or pericardi al effusions are seen. Emphysematous changes are seen with upper lobe dominance. There is scarring in the lung apices. No focal areas of consolidation or pneumothoraces or lung masses/nodules are oth erwise seen. There are degenerative changes in the spine. Upper abdominal tomograms demonstrate cys ts in the liver and kidneys. IMPRESSION: Emphysematous changes in the lungs. POS: C
[2017-11-04] MEDS: Furosemide 20 MG/2 ML VIAL SLOW IVP SCH (14:26)
[2017-11-04] MEDS ORDERED: Iopamidol 370 76% 100 ML VIAL ONE (15:00)
--- NOTE | 2017-11-04 16:59 | CON ---
DATE OF CONSULTATION: 11/04/2017 HISTORY OF PRESENT ILLNESS: Mr. Marcio Mcintyre is an 87-year-old [place] gentleman from [place], who was here visiting 2 weeks ago. He presented to the emergency room on 10/22/2017 with wea kness and dyspnea. He was found to be in atrial fibrillation with fast ventricular response. He als o apparently had a history of atrial fibrillation 3 years prior to that when he had pneumonia. Echoc ardiogram revealed an ejection fraction of 35% to 40% with mild left ventricular enlargement, mild mi tral regurgitation, mild aortic regurgitation and mild tricuspid regurgitation. He was placed on ami odarone apparently, chemically converted to sinus rhythm. He was diuresed and his creatinine increas ed to 2.14 and diuretics were then held as well as SINDY inhibitor, which was later restarted. Ultimat chucho, he was discharged on . He now presents with an episode of chest discomfort yesterday. Discussion was held with the help of one of the nurses who was providing translation. He apparently has had some episodes at home of ches t pressure lasting up to 1 hour. There is no pleuritic component to the pain. Pain does not seem to be associated with exertion. The episode that brought him to the hospital occurred when he was gett ing up off the toilet and apparently hit his head on the sink and then started having the chest disco mfort. PAST MEDICAL HISTORY: Hypertension, COPD, atrial fibrillation converted with p.o. amiodarone, GERD a nd systolic heart failure. PAST SURGICAL HISTORY: Prostate surgery and lip surgery. MEDICATIONS AT DISCHARGE: Include carvedilol 3.125 b.i.d., aspirin 81 daily, Eliquis 2.5 b.i.d., ami odarone 200 b.i.d., Mucinex 600 b.i.d., enalapril 10 daily and vitamin B12. ALLERGIES: None. SOCIAL HISTORY: He smoked 1 pack per day, but stopped 2 weeks ago when he was hospitalized. He does not drink. REVIEW OF SYSTEMS: It is difficult to obtain, but appears to be negative. PHYSICAL EXAMINATION: VITAL SIGNS: Blood pressure 169/59, pulse of 50, sinus rhythm on the monitor. HEENT: PERRL. NECK: Supple. LUNGS: Chest reveals distant, but clear breath sounds. CARDIOVASCULAR: S1 and S2 are normal, without any S3, S4 or murmurs. ABDOMEN: Normal bowel sounds, without tenderness. EXTREMITIES: Revealed no clubbing, cyanosis or edema. NEUROLOGIC: Grossly intact. SKIN: Warm and dry. LABORATORY AND IMAGING DATA: EKG reveals normal sinus rhythm with left ventricular hypertrophy with repolarization abnormality. His previous EKG when he was admitted also had the same type ST segment changes. On this admission EKG, he is in sinus rhythm with a rate of 48 per minute. Hemoglobin 14.6 , hematocrit 43.6, white count 12,600 and platelets 284,000. Sodium 136, potassium 4.5, chloride 100 , carbon dioxide 29, BUN 22 and creatinine 1.14. Troponin I is up to 0.051, which actually is less t chávez his troponins during his hospitalization 2 weeks ago. Cholesterol 154, triglycerides 81, HDL 43 and LDL 95. IMPRESSION: 1. Probable demand ischemia. 2. Prolonged chest discomfort without significant elevation of his cardiac enzymes. 3. Systolic heart failure with an ejection fraction of 35% to 40%. 4. Sinus bradycardia with carvedilol being discontinued. 5. Atrial fibrillation converted with p.o. amiodarone. 6. Hypertension. 7. Former smoker, stopped 2 weeks ago. PLAN: Mr. Mcintyre to undergo Lexiscan Cardiolite testing. I will discontinue his Eliquis and star t him on Lovenox in case he needs to undergo cardiac catheterization. Dr. Casey who cared for him previously will return in the morning.
[2017-11-04] MEDS: guaiFENesin ER 600 MG TAB PO SCH (20:34)
[2017-11-04] MEDS: Enoxaparin Sodium 60 MG/0.6 ML SYRINGE SC SCH (20:35)
[2017-11-05 05:26] LABS: Hemoglobin 13.8 g/dL (14.0-18.0); Platelet Count 286 thou/uL (130-400)
[2017-11-05] MEDS: Furosemide 20 MG/2 ML VIAL SLOW IVP SCH ×2 (05:39→13:40)
[2017-11-05] MEDS ORDERED: Amiodarone 200 MG TAB PO SCH (09:00)
[2017-11-05] MEDS: Docusate 100 MG CAP PO SCH (10:15)
[2017-11-05] MEDS: guaiFENesin ER 600 MG TAB PO SCH (10:15)
[2017-11-05] MEDS: Famotidine/PF 20 mg/2ml Vial SLOW IVP SCH (10:15)
[2017-11-05] MEDS: Enoxaparin Sodium 60 MG/0.6 ML SYRINGE SC SCH (10:15)
--- NOTE | 2017-11-05 13:10 | PDOC.PN ---
- Objective Vital Signs & Weight: Vital Signs (12 hours) Temp Pulse Resp BP BP Pulse Ox 11/05/17 07:18 97.8 F 65 17 128/56 L 98 11/05/17 07:14 97.8 F 65 17 11/05/17 07:01 60 14 11/05/17 04:00 98.4 F 60 20 133/61 97 I&O: 11/04/17 11/05/17 11/06/17 06:59 06:59 06:59 Intake Total 240 Balance 240 Result Diagrams: 11/05/17 04:42 11/05/17 04:42 Dx/Plan - Plan * .
[2017-11-05] MEDS ORDERED: Regadenoson 0.4 MG/5 ML SYRINGE ONE (15:15)
--- NOTE | 2017-11-05 15:41 | NM ---
CARDIAC SPECT: HISTORY: An 87-year-old male with chest pain, atrial fibrillation, COPD, CHF, hypertension, and smoker. TECHNIQUE: A myocardial perfusion scan is performed using the single-isotope 1-day protocol with Technetium 99m sestamibi. Nine mCi were injected intravenously for the rest exam followed by 27 mCi for the stress study. Pharmacologic stress with LexiScan is monitored and interpreted by Dr. Whiting. FINDINGS: Homogeneous tracer distribution is seen in the myocardial segments on stress and rest images without fixed or reversible defects. GATED SPECT LVEF: 52%. WALL MOTION EXAM: Normal. IMPRESSION: Normal myocardial perfusion scan. POS: OFF
[2017-11-05 16:16] VITALS: BP 136/60; TEMP 97.4
== END 2017-11-05 18:13 | disposition home or self-care (01) | DRG 292 ==
LOC: ERS 15:19 → 2SW 20:17 → OBSVTOIN 11-04 00:37 → 2NO 11-04 06:32
PROVIDERS: ADMIT Family Medicine; ATTEND Family Medicine
DX: I11.0 Hypertensive heart disease with heart failure (principal); I24.8 Other forms of acute ischemic heart disease; N17.9 Acute kidney failure, unspecified; I48.91 Unspecified atrial fibrillation; E87.1 Hypo-osmolality and hyponatremia; I50.23 Acute on chronic systolic (congestive) heart failure; R00.1 Bradycardia, unspecified; Z79.01 Long term (current) use of anticoagulants; F17.210 Nicotine dependence, cigarettes, uncomplicated; Z79.82 Long term (current) use of aspirin; K21.9 Gastro-esophageal reflux disease without esophagitis; J42 Unspecified chronic bronchitis
CPT/HCPCS: 36415; 71045; 71260; 78452; 80048; 80053; 80061; 82553; 82565; 83880; 84484; 85014; 85018; 85025; 85049; 85730; 90471; 90682; 93005; 93017; 93798; 94640; 94760; 99406; A9500; G0008; G8978-GP-CI; G8979-GP-CI; G8980-GP-CI; G8987-GO-CH; G8988-GO-CH; G8989-GO-CH; J1650; J1940; J2785; J7620; Q2036; S0028

== ENCOUNTER 2018-01-13 12:25 | Emergency (ER) | payer MEDICAID, SELFPAY ==
[2018-01-13 13:32] LABS: #Basophils 0.1 thou/uL (0.0-0.2); #Eosinphils 0.3 thou/uL (0.0-0.7); #Lymphocytes 1.6 thou/uL (1.20-3.40); #Monocytes 1.6 thou/uL (0.11-0.59); #Neutrophils 10.2 thou/uL (1.40-6.50); %Basophils 0.5 % (0.0-1.0); %Eosinophils 2.3 % (0.0-10.0); %Lymphocytes 11.7 % (21.0-51.0); %Monocytes 11.3 % (0.0-10.0); %Neutrophils 74.3 % (42.0-75.0); Hemoglobin 12.5 g/dL (14.0-18.0); Mean Corpuscular HGB CONC 34.4 g/dL (32.0-36.0); Mean Corpuscular Hemoglobin 33.2 pg (27.0-31.0); Mean Corpuscular Volume 96.6 fl (80.0-94.0); Mean Platelet Volume 6.4 fL (7.4-10.4); Platelet Count 290 thou/uL (130-400); Red Blood Cell (RBC) Count 3.76 mill/uL (4.70-6.10); White Blood Cell (WBC) Count 13.8 thou/uL (4.8-10.8)
[2018-01-13] MEDS ORDERED: Acetaminophen 500 MG TAB ONE (13:35)
--- NOTE | 2018-01-13 14:01 | RAD ---
PA AND LATERAL CHEST: HISTORY: Cough. FINDINGS: Heart size within normal limits. There are atherosclerotic changes of the aorta. There are chronic lung changes seen. No focal infiltrative process noted. IMPRESSION: Chronic obstructive pulmonary disease-type changes. No acute process. POS: [facility]
[2018-01-13 14:04] LABS: ALT (SGPT) 11 U/L (8-55); AST (SGOT) 14 U/L (5-34); Albumin 3.8 g/dL (3.4-4.8); Alkaline Phosphatase 81 U/L (40-150); Anion Gap 12 mmol/L (10-20); BUN (Urea Nitrogen) 16 mg/dL (8.4-25.7); Bilirubin, Total 0.5 mg/dL (0.2-1.2); Calc. Creatinine Clearance 0 mL/min (70-130); Calcium 8.8 mg/dL (7.8-10.44); Carbon Dioxide 24 mmol/L (23-31); Chloride 105 mmol/L (98-107); Estimated GFR-MDRD 63; Globulin 3.4 g/dL (2.4-3.5); Glucose 87 mg/dL (83-110); Potassium 4.2 mmol/L (3.5-5.1); Protein, Total 7.2 g/dL (5.8-8.1); Sodium 137 mmol/L (136-145)
== END 2018-01-13 14:22 | disposition home or self-care (01) ==
LOC: ERS 12:25
DX: J18.9 Pneumonia, unspecified organism (principal); I10 Essential (primary) hypertension; E03.9 Hypothyroidism, unspecified; Z87.891 Personal history of nicotine dependence; Z79.82 Long term (current) use of aspirin; Z79.899 Other long term (current) drug therapy
CPT/HCPCS: 36415; 71046; 80053; 83605; 85025